=== PATIENT | male | born 1995 | race Caucasian/White ===

== ENCOUNTER → 2017-10-29 | Day surgery (SDC) | payer MEDICAID ==
[~2017-10-29] MED LIST: ACETAMINOPHEN 500 MG TAB ONE; ACETAMINOPHEN 500 MG TAB PO ONE; ACETAMINOPHEN 500 MG TAB PO PRN; ALBUTEROL 3 ML DEYVIAL IH PRN; DEXAMETHASONE 4 MG/ML VIAL ONE; HYDROCODONE/APAP 5/325 TAB PO PRN; HYDROmorphONE/DILAUDID 1 MG/ML INJ IVP PRN; KETOROLAC 30 MG/1 ML SDV ONE; LIDOCAINE 1% 2 ML INJ ID PRN; LIDOCAINE 1% 300 MG/30 ML SDV ONE; LIDOCAINE 2% 5 ML SDV ONE; LR 1,000 ML IV ONE; LR 500 ML IV PRN; METOCLOPRAMIDE 10 MG/2 ML VIAL IVP PRN; MIDAZOLAM 2 MG/2 ML VIAL IVP ONE; NALOXONE HCL 0.4 MG/ML INJ IVP PRN; ONDANSETRON 4 MG/2 ML VIAL IVP PRN; ONDANSETRON 4 MG/2 ML VIAL ONE; OXYCODONE/APAP 5/325 TAB PO PRN; PREGABALIN 150 MG CAP ONE; PREGABALIN 150 MG CAP PO ONE; PROMETHAZINE HCL 25 MG/ML INJ IVP PRN; PROPOFOL 200 MG/20 ML VIAL ONE; ceFAZolin 2 GM/SWFI 2 GM/20 ML SYR IVP ONE; ceFAZolin 2 GM/SWFI 20 ML SYR IVP ONE; fentaNYL 100 MCG/2 ML INJ IVP PRN; fentaNYL 100 MCG/2 ML INJ ONE
--- NOTE | 2017-10-29 06:41 | PDGENHP ---
History and Physical - Chief Complaint Retained Hardware - History of Present Illness 1. SCFE, left hip, early OA, Cam type ANDREW 2. Reduced ROM 2/2 SCFE 3. Left LLD HISTORY OF PRESENT ILLNESS: Damasois a 22 y.o.~active male~who I have had the pleasure to consult on today. I have enjoyed meeting him~and his parents. He~lives in [place] with them. ~Vinod Almarazis currently not working. Damasoenjoys swimming and skateboarding. Vinod's left hip pain started 6-8 years ago, but he was also having knee issues at that time. ~In October 2015 his hip issues became problematic to the point that he decided to get a more definitive diagnosis, having suffered with these symptoms for very long. ~He presented to his family doctor, who diagnosed him with a torn gracilis muscle. ~He then presented to [facility] (Dr Godfrey Pineda) who diagnosed him with SCFE and sent him to us. Damasodoes not have~a known history of hip dysplasia. Presentation today is of left-sided deep, anterior "groin" and hip pain. ~The hip does not~wake him~at night and does~click and catch on him. Sitting can be a real struggle for him. Damasodoes~report suffering from lower back pain episodes. Damasohas not~participated in physical therapy and has not~tried other conservative measures. He~has not~received sufficient symptomatic improvement. Damasohas~utilized medication for pain management intermittently, specifically Naproxen. Damasodenies issues with the right hip. ~ Of note, he was diagnosed with bilateral Roosevelt Schlatter's at ~age 10. His hip is much more bothersome and symptomatic than his knee. Damasounderstands that he~has a hip and pelvis problem which should be researched and wishes to get a better understanding of his~hip status, followed by an establishment of a treatment strategy, hoping he~would be able to get back to his~well being active life. History: Past medical history: ~ Roosevelt Schlatter's~ Cystic acne SCFE, diagnosed earlier this year Relevant familial history: None which is relevant Past surgical history: Appendectomy, emergency, September 2014 Damasodenies problematic issues with general anesthesia in the past. I have reviewed, verified and agree with the past medical, surgical, family and social history. Current Medications:~has a current medication list which includes the following prescription(s): naproxen. ALLERGIES:~has no allergies on file. Objective: Physical Examination: Damasois 5 feet 11 inches tall and weighs 145 Lbs. Damasois AAO x3; he~is well- nourished, in NAD. Skin is warm and dry. ~Breathing is non-labored. ~CV with RRR by pulse. Abdomen is soft, NTND. ~Currently, he~walks with an abnormal slightly compensatory gait. He~has left~2-3 cm short leg length discrepancy and presents with moderate~signs of joint laxity. He~is fit looking. ~~ Trendelenburg sign is negative and proprioception is normal, both~sides. Lower spine examination is positive for sciatic or femoral nerve irritation with ~positive left SLR~&~femoral stretch tests. Range of motion of the spine is normal~for flexion, extension, and rotations, with no associated pain. SIJs examination produces mild pain on left side (TTP) with normal~ASUCNION in relation and local tenderness. Strength, Sensation and pulses are normal - bilaterally Ankles and knees exams are normal~and no~mal-alignment is evident. Hip ROM (degrees): ER At 90~hip FL IR At 90~hip FL IR Neutral hip ER Neutral hip AB AD FL EX R 45 25 25 25 45 10 110 10 L 54 5 P 5 45 20 15 105 P 5 Specific hip and pelvis tests: Quadrant ASUNCION Roll Add. Longus R Negative Negative Negative Negative L +++ +++ Negative +++ (MTJ) Glut. Med ITB Pos. Imp R Negative Negative Negative L Negative Negative Negative Squeeze test measured normal Bony Symphysis pubis is pain free to touch while concentric activity of the rectus abdominis, does~produce pain at its insertion, (but not a daily source of pain). Ilio Psos specific tests are negative for pain during cycling for both hips. IP positive left hip with resisted flexion at 90 degrees. Greater trochanteric burse is pain free on both hips. Piriformis tests: FAIR is negative, with no local signs of neuritis related to sciatic nerve. Thigh circumference is asymmetric with mild atrophy on left~side. Hamstrings tests are negative~functional contraction and negative~tendinopathy Imaging: Radiology studies which I have personally reviewed, analyzed and measured are below: XR: AP of the hip and pelvis: Performed in a good technique Coccyx to pubic symphysis distance 1.58 cm. Specific measurements show: NSA~ Lat. Cam LCE Lat. Pincer C.Over~sign Act. Depth A.I~% Head~Coverage % Sourcil~Angle ATDmm R N + 35 - - N - N 4 N L 117 +++ 27- - - N - N/A 18 9MM [place] Lines are preserved. Minimal Pathological signs are seen in the Symphysis Pubis. Minimal Pathological signs are seen at the Ischial tuberosity. ~~~~~~~~~~~~~ Pos. wall sign Joint Space-WBZ Joint Space-Medial SALT NAD R + 4.7 mm 3.1 mm 18.9 mm 19.4 mm L N/A 3.8 mm 3.4 18 12 Sclerosis ~~Dysplasia Cysts ISS Sup. Lat. OA R Negative Negative Negative Negative Negative L ++ + ++ Negative ++ X Table lateral: Anterior cam lesion is seen~ Radiographic LLD - 2.2cm CT / 3D: SIGNIFICANT SUB CHONDRAL CYSTS anterior head and socket. HN osteophytes. Impression and plan: Damasois a 22 y.o.~active male~suffering from symptomatic left hip pain due to SCFE~and early OA sequela, reduced ROM, and LLD causing significant disability to him~and altering his~sport and life activities. ~Physical examination, imaging, and his~story correspond with the diagnosis mentioned above. I have explained the diagnosis and its significance to Damasoand we have discussed the various possible treatment options and their implications with him. Though these include proceeding with conservative treatment while continuing to modify his~activities to avoid aggravating the hip further, resuming anti pain medications or intra articular injections (when needed) which can give temporary relief, a hip arthroscopy aiming to address the above pathology and possibly a hip arthroscopy aiming to address the above pathology followed by derotational femoral osteotomy (DFO), we need additional, sophisticated imaging modalities in order to evaluate the status of his hip joint and finalize our treatment strategy. ~We can also discuss an operation to lengthen his leg. We will obtain MRI dGEMRIC to quantitatively evaluate the status of his hip cartilage and determined if he is still viable for preservation surgical treatment. ~CT with 3D recon will be done in order to evaluate femoral torsion and pre plan an accurate and optimal volume and location of bony resection. Vinod~is happy with this plan. ~He and his parents will return to clinic once the imaging modalities are complete; at that time, we will discuss the next steps. I wish Vinod~all the best, ~~ Ashanti Cheney, PAC~ Humphrey Hernandez MD History Information - Allergies/Home Medication List Allergies/Adverse Reactions: No Known Allergies Allergy (Verified 10/29/17 06:37) Home Medications: NK [No Known Home Meds] 10/16/17 [Last Taken Unknown] I have personally reviewed and updated: medical history - Social History Smoking Status: Current some day smoker Review of Systems Review of Systems: Physical Exam Physical Exam:
[2017-10-29 06:48] VITALS: PULSE 59
--- NOTE | 2017-10-29 06:59 | PDANEPAE ---
ANE History of Present Illness left hip hardware removal ANE Past Medical History - Cardiovascular History Hx Hypertension: No Hx Arrhythmias: No Hx Chest Pain: No Hx Coronary Artery / Peripheral Vascular Disease: No Hx CHF / Valvular Disease: No Hx Palpitations: No - Pulmonary History Hx COPD: No Hx Asthma/Reactive Airway Disease: No Hx Recent Upper Respiratory Infection: No Hx Oxygen in Use at Home: No Hx Sleep Apnea: No Sleep Apnea Screening Result - Last Documented: Negative - Neurologic History Hx Cerebrovascular Accident: No Hx Seizures: No Hx Dementia: No - Endocrine History Hx Diabetes: No Obesity: no - Renal History Hx Renal Disorders: No - Liver History Hx Hepatic Disorders: No - Neurological & Psychiatric Hx Hx Neurological and Psychiatric Disorders: No - Cancer History Hx Cancer: No - Congenital Disorder History Hx Congenital Disorders: Yes Congenital History Comment: LT HIP - GI History GERD: no Hx Gastrointestinal Disorders: No - Other Health History Other Health History: BURSITIS FROM METAL IN LT HIP - Chronic Pain History Chronic Pain: Yes (LT HIP) - Surgical History Prior Surgeries: LT HIP RECONSTRUCTION HARDWARE. 12/2016 AT [facility]. NOEMY WATSON Review of Systems Review of Systems: - Exercise capacity METS (RN): 4 METS ANE Patient History - Allergies Allergies/Adverse Reactions: No Known Allergies Allergy (Verified 10/29/17 06:37) - Home Medications Home medications: home medication list seen and reviewed Home Medications: NK [No Known Home Meds] 10/16/17 [Last Taken Unknown] - NPO status NPO Since - Liquids (Date): 10/28/17 NPO Since - Liquids (Time): 19:00 NPO Since - Solids (Date): 10/28/17 NPO Since - Solids (Time): 19:00 - Anes Hx Anes Hx: no prior problems - Smoking Hx Smoking Status: Current some day smoker ANE Labs/Vital Signs - Vital Signs Blood Pressure: 119/62 Heart Rate: 59 Respiratory Rate: 16 O2 Sat (%): 95 Height: 182.88 cm Weight: 80.739 kg ANE Physical Exam - Airway Neck exam: FROM Mallampati Score: Class 1 Mouth exam: normal dental/mouth exam - Pulmonary Pulmonary: no respiratory distress - Cardiovascular Cardiovascular: regular rate and rhythym - ASA Status ASA Status: I ANE Anesthesia Plan Anesthesia Plan: GA w LMA
--- NOTE | 2017-10-29 10:07 | POSTANESTH ---
Post Anesthetic Evaluation Cardiovascular Status: Normal, Stable Respiratory Status: Normal, Stable Level of Consciousness/Mental Status: Can Participate in Eval Pain Control: Adequate, Prn Tx Ordered Nausea/Vomiting Control: Adequate, Prn Tx Ordered Complications Possibly Related to Anesthesia: None Noted
[2017-10-29 11:28] VITALS: RESP 11; O2SAT 97
[2017-10-29 11:29] VITALS: TEMP 97.7
[2017-10-29 11:49] VITALS: BP 118/68
== END | disposition home or self-care (01) ==
LOC: FSGY 06:01
PROVIDERS: ATTEND Orthopaedic Surgery Sports Medicine
PROC: 0QP704Z Removal of Internal Fixation Device from Left Upper Femur, Open Approach (ICD-10-PCS; principal; 2017-10-29 07:30)
DX: T84.84XA Pain due to internal orthopedic prosthetic devices, implants and grafts, initial encounter (principal)
CPT/HCPCS: J0690; J1100; J1885; J2250; J2405; J2704; J3010